=== PATIENT | female | born 1935 | race Caucasian/White ===

== ENCOUNTER → 2017-04-30 | Outpatient (CLI) | payer OTHER ==
[~2017-04-30] MED LIST: ACCUPRIL40 MG PO; CARDIZEM30 MG PO; LEVOTHYROXIN0.075 MG PO; ZOCOR20 MG PO
== END ==
LOC: RAD 04-29 14:03
DX: Z12.31 Encounter for screening mammogram for malignant neoplasm of breast (principal)

== ENCOUNTER → 2017-04-30 | Outpatient (CLI) | payer OTHER ==
[~2017-04-30] VITALS: Ht 170.2 cm; Wt 70.3 kg
[2017-04-30 13:46] VITALS: BP 173/71
== END ==
LOC: PAIN
DX: M25.561 Pain in right knee (principal); M25.551 Pain in right hip; K21.9 Gastro-esophageal reflux disease without esophagitis; M54.5 Low back pain; Z90.710 Acquired absence of both cervix and uterus; Z98.890 Other specified postprocedural states

== ENCOUNTER → 2017-05-21 | Outpatient (CLI) | payer OTHER ==
[~2017-05-21] VITALS: Ht 170.2 cm; Wt 71.9 kg
--- NOTE | ~2017-05-21 | HPC ---
[facility] [address] [place] [address] PAIN MANAGEMENT CONSULTATION Name: ANITA OSEGUERA [id number] Admission: 05/21/17 Attend Phys: He Hewitt DO Discharge: Date of : 37 Report #: [id number] THIS REPORT FOR: //name// CC: He Santoyo MD DATE OF SERVICE: 05/21/2017 CHIEF COMPLAINT: Right knee pain. HISTORY OF PRESENT ILLNESS: As you know, the patient is an 82-year-old female who had acute onset of low back pain, right lower extremity pain with paresthesias that began 02/16/2017. Denied any injury or trauma. She was seen in consultation 04/30/2017, diagnosed with chronic low back pain, lumbar radiculopathy, lumbar facet syndrome and right knee pain secondary to osteoarthritis. We treated the patient with treatment options available for low back symptoms and the most conservative fashion with the use of physical therapy. While she was at physical therapy, she was complaining of continued right knee pain. We extended the physical therapy to also include her right knee. Despite the physical therapy on the right knee, her knee remained painful, her low back has improved significantly. She returns today in followup visit to discuss treatment options. ALLERGIES: No known drug allergies. CURRENT MEDICATIONS: Synthroid, diltiazem, simvastatin. SOCIAL HISTORY: The patient denies tobacco, IV or illicit drug use. Denies any chronic alcohol use. She is unaccompanied at today's visit. PHYSICAL EXAMINATION: VITAL SIGNS: Blood pressure 143/81, pulse 72, respiratory rate 14, unlabored. The patient is 95% on room air, height 5 feet 7 inches tall, weight 158.6 pounds, BMI calculated 28.4. GENERAL: Well developed, well nourished, well hydrated 82-year-old female appearing her stated age. She is placing current pain score at around 5-6/10. HEENT: Normocephalic, atraumatic. Pupils equal, round, reactive to light. EXTREMITIES: Show no clubbing, no cyanosis, no edema. MUSCULOSKELETAL: The patient does have some pain standing from a seated position over the right knee, medial aspect more than the lateral. There is some palpatory tenderness over the lateral aspect of the right knee. There does not appear to be knee effusion, no swelling around the knee itself. ASSESSMENT: 1. Chronic low back pain. [address] [address] PAIN MANAGEMENT CONSULTATION Name: ANITA OSEGUERA [facility] #: [facility]ITAL[facility] [id number] Admission: 05/21/17 Attend Phys: He Hewitt DO Discharge: Date of : 37 Report #: [id number] 2. Chronic lumbar radiculopathy. 3. Facet arthropathy lower lumbar spine. 4. Right knee pain secondary to osteoarthritis. PLAN: 1. The patient returns today in followup visit with concerns of ongoing knee pain. I recommend the patient undergo x-ray imaging of the right knee as quickly as possible. We will review the findings as they are available. I believe the majority of the symptoms that she is experiencing are related to the medial aspect of the knee. We will send the patient for x-ray imaging; if imaging is such that there is significant amount of arthritis, I would recommend intraarticular knee injections; if these are ineffective, trial Synvisc injections; if these are ineffective, surgical options. She will review these potential treatment options once we have x-ray imaging available. She will be sent for x-ray imaging today. We will review the findings once they are available. 2. We made no changes in medical therapy. The patient wishes to continue her current treatment options and consider options of treatment for more aggressive therapy if necessary in the future. 3. We will see the patient back in followup visit on an as needed basis for possible intraarticular knee injections if needed. By: [id number] He Hewitt DO /nt
[2017-05-21 13:08] VITALS: BP 143/81
== END | disposition home or self-care (01) ==
LOC: PAIN 07:16
DX: M54.16 Radiculopathy, lumbar region (principal); M17.11 Unilateral primary osteoarthritis, right knee; G89.29 Other chronic pain; Z98.890 Other specified postprocedural states; Z88.0 Allergy status to penicillin; Z79.899 Other long term (current) drug therapy

== ENCOUNTER → 2019-04-20 | Outpatient (CLI) | payer OTHER | LOC: BC 14:39 | DX: Z12.31 Encounter for screening mammogram for malignant neoplasm of breast (principal) ==

== ENCOUNTER → 2019-04-21 | Outpatient (CLI) | payer OTHER | LOC: ULTRA 14:06 | DX: N64.59 Other signs and symptoms in breast (principal); R92.2 Inconclusive mammogram ==

== ENCOUNTER → 2019-12-10 | Outpatient (CLI) | payer OTHER | LOC: SJCVC 11:10 | DX: I10 Essential (primary) hypertension (principal); I70.0 Atherosclerosis of aorta; K86.2 Cyst of pancreas; C50.919 Malignant neoplasm of unspecified site of unspecified female breast; E78.5 Hyperlipidemia, unspecified; K21.9 Gastro-esophageal reflux disease without esophagitis; M19.90 Unspecified osteoarthritis, unspecified site; Z79.899 Other long term (current) drug therapy ==

== ENCOUNTER → 2020-06-15 | Outpatient (CLI) | payer OTHER | LOC: SJCVC 10:54 | PROVIDERS: ATTEND Internal Medicine | DX: I10 Essential (primary) hypertension (principal); C50.919 Malignant neoplasm of unspecified site of unspecified female breast; E78.5 Hyperlipidemia, unspecified; I65.23 Occlusion and stenosis of bilateral carotid arteries; I70.0 Atherosclerosis of aorta; K86.2 Cyst of pancreas; Z79.899 Other long term (current) drug therapy ==

== ENCOUNTER → 2020-06-23 | Outpatient (CLI) | payer OTHER | LOC: SJCVCIMAG 07:43 | PROVIDERS: ATTEND Internal Medicine | DX: I65.23 Occlusion and stenosis of bilateral carotid arteries (principal); I73.9 Peripheral vascular disease, unspecified ==

== ENCOUNTER → 2021-11-28 | Outpatient (CLI) | payer OTHER | LOC: RAD 14:13 | PROVIDERS: ATTEND Internal Medicine | DX: J98.11 Atelectasis (principal); J90 Pleural effusion, not elsewhere classified ==

== ENCOUNTER → 2021-11-30 | Outpatient (CLI) | payer OTHER | LOC: CAT 10:04 | PROVIDERS: ATTEND Internal Medicine | DX: J98.11 Atelectasis (principal); J90 Pleural effusion, not elsewhere classified; Z90.11 Acquired absence of right breast and nipple; R91.8 Other nonspecific abnormal finding of lung field; Z01.812 Encounter for preprocedural laboratory examination ==

== ENCOUNTER → 2021-12-08 | Outpatient (CLI) | payer OTHER ==
[2021-12-08 13:49] LABS: BF NUCLEATED CELLS 786 /mm3; BF RBC 983 /mm3
[2021-12-08 19:02] LABS: COLOR YELLOW; TOTAL VOLUME 58 mL
[2021-12-08 19:03] LABS: CLARITY CLOUDY
[2021-12-08 21:51] LABS: BF MACROPHAGE 8 %; BF NEUTROPHILS 0 %; SOURCE PLEURAL
[2021-12-09 08:17] LABS: SOURCE CHEST
[2021-12-09 13:07] LABS: BODY FLUID ALBUMIN 2.6 g/dL (Not Estab.); BODY FLUID AMYLASE 21 U/L (()); BODY FLUID GLUCOSE 83 mg/dL (()); BODY FLUID LDH 175 IU/L (()); BODY FLUID PROTEIN 3.8 g/dL (())
--- NOTE | 2021-12-12 12:07 | PATH ---
[facility] [address] [place] [address] PATHOLOGY RPT PROCEDURE Name: ANITA OSEGUERA Room #: REG [facility].#: [id number] Admission: 12/08/21 Date of : 37 Discharge: Report #: [id number] Path Case #: [id number] Note [facility] Accession Number: [id number] TESTS RESULT FLAG UNITS REF RANGE LAB Clinician Provided Cytology Information No. of containers..01 Other (Miscellaneous) Source: PLEURAL FLUID DIAGNOSIS: PLEURAL FLUID INCONCLUSIVE. COMMENT, POORLY CELLULAR WITH FEW ATYPICAL CELLS PRESENT. CELL BLOCK CONSIST OF MOSTLY BLOOD HENCE IMMUNOSTAINS WERE NOT PERFORMED. SUGGEST CLINICAL CORRELATION CANNOT RULE OUT MALIGNANCY Signed out by: 01 Frank Gil MD, Pathologist NPI- [id number] Performed by: Taylor Lock, Associate Director Of Nursing ([facility]) Gross description: 01 9ML, YELLOW, CLEAR /LCS 12/11/2021 1653 Local FLAG LEGEND: L-Low Normal,H-High Normal,LL-Alert Low,HH-Alert High <-Panic Low,>-Panic High,A-Abnormal,AA-Critical Abnormal Performed at: [address] [place] [address] Frank Gil MD, Specimen Comment: A courtesy copy of this report has been sent to [phone] Specimen Comment: Report sent to Performed at: [address], [place], [place] [id number] MD Frank Gil MD Phone: [phone]
== END | disposition home or self-care (01) ==
LOC: ULTRA 08:29
PROVIDERS: ATTEND Internal Medicine
DX: J90 Pleural effusion, not elsewhere classified (principal); R06.02 Shortness of breath; Z79.899 Other long term (current) drug therapy; Z98.890 Other specified postprocedural states; Z88.0 Allergy status to penicillin

== ENCOUNTER 2021-12-18 09:42 | Inpatient (IN) | payer OTHER ==
[~2021-12-18] VITALS: Ht 170.2 cm; Wt 72.3 kg
--- NOTE | ~2021-12-18 | EMS ---
[address] [address] EMS Patient Care Report Name: ANITA OSEGUERA Room #: 203-P ADM IN M.R.#: [id number] Admission: 12/18/21 Attend Phys: Soren Ricks MD Discharge: Date of : 37 Report #: [id number] THIS REPORT FOR: //name// Report Transmitted: 12/22/2021 11:30 EMS Care Summary [place], [place]/[facility] Incident [id number] @ 12/18/2021 09:04 Incident Location [address] [place] [address] Patient ANITA OSEGUERA Female, 86 Years 1935 Patient Address [address] [place] [address] Patient History Hypertension (HTN),Breast Cancer,Hypothyroidism, Patient Allergies No known allergies, Patient Medications Estradiol, Synthroid, Quinapril Hydrochloride, Diltiazem, Chief Complaint ABDOMINAL PAIN Disposition Transported No Lights/[place] Dispatch Reason Sick Person Transported To [facility] Narrative M36 was dispatched for sick. Arrived on-scene to find 86 yo female patient sitting in chair with P42. 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 Patient reported recently was at hospital for breathing issues and had fluid drained off lungs and is scheduled to go back this week but [address] [address] EMS Patient Care Report Name: ANITA OSEGUERA Room #: 203-P ADM IN [facility].#: [id number] Admission: 12/18/21 Attend Phys: Soren Ricks MD Discharge: Date of : 37 Report #: [id number] symptoms are progressing and feels necessary to be transported to [place] for eval. Patient was COA x4 and in moderate distress. Patient airway was patent. Patient breathing was labored at times with exertion. Patient pulse was normal. Patient skin was normal. Patient was able to stand and ambulate. Patient had generalized weakness. Patient complained of minor abdominal pain, malaise, weakness and shortness of breath with exertion. Patient rated pain 4/10. Patient denied headache, blurry vision, dizziness, syncope, jaw pain, neck pain, arm pain and chest pain. Patient report was obtained and assessment was performed. Patient was assisted to stretcher and secured with all safety straps. Patient was loaded into ambulance. Patient was placed on corn sheller and showed sinus tach. Patient vitals were assessed. Patient room air was 88%. Patient was placed on oxygen via nasal cannula @ 2lpm with improvement to 98% noted. Patient was transported routine. Patient did vomit during transport and appeared to have coffee ground emesis. Patient was unloaded and taken to ED 1. Patient was moved from stretcher to bed via draw sheet method by EMS. Patient signed for transport. Patient's RN signed for receiving facility. Patient care and report turned over to RN. M36 returned to service. Initial Vitals @09:33P: 101,R: 22,BP: 180/84,Pain: 4/10,GCS: 15,CO: 1,SpO2: 97,Revised Trauma: 12, @PTAP: 110,R: 20,BP: 180/90,Pain: 4/10,GCS: 15,Glucose: 179,SpO2: 94,Revised Trauma: 12, @09:23P: 106,R: 26,BP: 188/93,Pain: 4/10,GCS: 15,CO: 1,SpO2: 94,Revised Trauma: 12, Assessments @09:16MENTAL:Time Oriented,Event Oriented,Place Oriented,Person Oriented,SKIN:HEENT:Eyes: Left Pupil: 4-mm,Eyes: Right Pupil: 4-mm,Head/Face: No Abnormalities,Neck/Airway: No Abnormalities,LUNG SOUNDS:Left Upper: Tenderness,Left Lower: Tenderness,Right Upper: Tenderness,Right Lower: Tenderness,General: No Abnormalities,ABDOMEN:Left Upper: Tenderness,Left Lower: Tenderness,Right Upper: Tenderness,Right Lower: Tenderness,General: No Abnormalities,PELVIS//GI:No Abnormalities,EXTREMITIES:Right Arm: Weakness,Left Arm: Weakness,Right Leg: Weakness,Left Leg: Weakness,PULSE:Radial: 2+ Normal,NEURO:Weakness Right-Sided,Weakness Left-Sided, Impression Malaise Procedures [address] [address] EMS Patient Care Report Name: MANSINORBERTOANITA Room #: 203-P ADM IN M.R.#: [id number] Admission: 12/18/21 Attend Phys: Soren Ricks MD Discharge: Date of : 37 Report #: [id number] @09:16 ALS Assessment Response: UnchangedSucceeded @09:19 Stretcher Response: Unchanged @09:21 3-Lead ECG Response: UnchangedSucceeded @09:22 Oxygen FlowRate: 2 Device: Nasal Cannula (NC) Response: ImprovedSucceeded Timeline ENGINEERING DESIGNER,BP: 180/90 M,PULSE: 110,RR: 20 R,SPO2: 94 Ox,ETCO2: ,B,PAIN: 4,GCS: 15, 09:03,Call Received 09:03,Dispatch Notified 09:04,Dispatched 09:05,En Route 09:14,On Scene 09:16,At Patient 09:16,ALS Assessment,Response: UnchangedSucceeded, 09:19,Stretcher,Response: Unchanged 09:21,3-Lead ECG,Response: UnchangedSucceeded, 09:22,Oxygen FlowRate: 2 Device: Nasal Cannula (NC) Response: ImprovedSucceeded, 09:23,BP: 188/93 M,PULSE: 106,RR: 26 R,SPO2: 94 Ox,ETCO2: ,BG: ,PAIN: 4,GCS: 15, 09:26,Depart Scene 09:33,BP: 180/84 M,PULSE: 101,RR: 22 R,SPO2: 97 Ox,ETCO2: ,BG: ,PAIN: 4,GCS: 15, 09:36,At Destination 09:51,Call Closed Disclaimer v1.1 Copyright 2021 [employer] This EMS Care Summary contains data elements from the applicable legal record (which may be displayed differently). It is designed to provide pertinent information for the following purposes: continuity of care, clinical quality, and state data reporting. The complete legal record is available to ED staff and administrators of the receiving hospital in [email or web address]'s Patient Tracker. All data is provided "as is."
--- NOTE | ~2021-12-18 | EMS ---
[address] [address] EMS Patient Care Report Name: ANITA OSEGUERA Room #: 203-P ADM IN M.R.#: [id number] Admission: 12/18/21 Attend Phys: Soren Ricks MD Discharge: Date of : 37 Report #: [id number] THIS REPORT FOR: //name// Report Transmitted: 12/19/2021 10:17 EMS Care Summary [place], [place]/[facility] Incident [id number] @ 12/18/2021 09:04 Incident Location [address] [place] [address] Patient ANITA OSEGUERA Female, 86 Years 1935 Patient Address [address] [place] [address] Patient History Hypertension (HTN),Breast Cancer,Hypothyroidism, Patient Allergies No known allergies, Patient Medications Diltiazem, Estradiol, Synthroid, Quinapril Hydrochloride, Chief Complaint ABDOMINAL PAIN Disposition Transported No Lights/[place] Dispatch Reason Sick Person Transported To [facility] Narrative M36 was dispatched for sick. Arrived on-scene to find 86 yo female patient sitting in chair with P42. 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 Patient reported recently was at hospital for breathing issues and had fluid drained off lungs and is scheduled to go back this week but [address] [address] EMS Patient Care Report Name: ANITA OSEGUERA Room #: 203-P ADM IN [facility].#: [id number] Admission: 12/18/21 Attend Phys: Soren Ricks MD Discharge: Date of : 37 Report #: [id number] symptoms are progressing and feels necessary to be transported to [place] for eval. Patient was COA x4 and in moderate distress. Patient airway was patent. Patient breathing was labored at times with exertion. Patient pulse was normal. Patient skin was normal. Patient was able to stand and ambulate. Patient had generalized weakness. Patient complained of minor abdominal pain, malaise, weakness and shortness of breath with exertion. Patient rated pain 4/10. Patient denied headache, blurry vision, dizziness, syncope, jaw pain, neck pain, arm pain and chest pain. Patient report was obtained and assessment was performed. Patient was assisted to stretcher and secured with all safety straps. Patient was loaded into ambulance. Patient was placed on engine monitor and showed sinus tach. Patient vitals were assessed. Patient room air was 88%. Patient was placed on oxygen via nasal cannula @ 2lpm with improvement to 98% noted. Patient was transported routine. Patient did vomit during transport and appeared to have coffee ground emesis. Patient was unloaded and taken to ED 1. Patient was moved from stretcher to bed via draw sheet method by EMS. Patient signed for transport. Patient's RN signed for receiving facility. Patient care and report turned over to RN. M36 returned to service. Initial Vitals @09:33P: 101,R: 22,BP: 180/84,Pain: 4/10,GCS: 15,CO: 1,SpO2: 97,Revised Trauma: 12, @PTAP: 110,R: 20,BP: 180/90,Pain: 4/10,GCS: 15,Glucose: 179,SpO2: 94,Revised Trauma: 12, @09:23P: 106,R: 26,BP: 188/93,Pain: 4/10,GCS: 15,CO: 1,SpO2: 94,Revised Trauma: 12, Assessments @09:16MENTAL:Person Oriented,Place Oriented,Event Oriented,Time Oriented,SKIN:HEENT:Eyes: Right Pupil: 4-mm,Eyes: Left Pupil: 4-mm,Head/Face: No Abnormalities,Neck/Airway: No Abnormalities,LUNG SOUNDS:Right Lower: Tenderness,Right Upper: Tenderness,Left Lower: Tenderness,Left Upper: Tenderness,General: No Abnormalities,ABDOMEN:Right Lower: Tenderness,Right Upper: Tenderness,Left Lower: Tenderness,Left Upper: Tenderness,General: No Abnormalities,PELVIS//GI:No Abnormalities,EXTREMITIES:Left Leg: Weakness,Right Leg: Weakness,Left Arm: Weakness,Right Arm: Weakness,PULSE:Radial: 2+ Normal,NEURO:Weakness Left-Sided,Weakness Right-Sided, Impression Malaise Procedures [address] [address] EMS Patient Care Report Name: JARET OSEGUERAJIAN Centeno Room #: 203-P ADM IN M.R.#: [id number] Admission: 12/18/21 Attend Phys: Soren Ricks MD Discharge: Date of : 37 Report #: [id number] @09:16 ALS Assessment Response: UnchangedSucceeded @09:19 Stretcher Response: Unchanged @09:21 3-Lead ECG Response: UnchangedSucceeded @09:22 Oxygen FlowRate: 2 Device: Nasal Cannula (NC) Response: ImprovedSucceeded Timeline SIGNALS OFFICER,BP: 180/90 M,PULSE: 110,RR: 20 R,SPO2: 94 Ox,ETCO2: ,B,PAIN: 4,GCS: 15, 09:03,Call Received 09:03,Dispatch Notified 09:04,Dispatched 09:05,En Route 09:14,On Scene 09:16,At Patient 09:16,ALS Assessment,Response: UnchangedSucceeded, 09:19,Stretcher,Response: Unchanged 09:21,3-Lead ECG,Response: UnchangedSucceeded, 09:22,Oxygen FlowRate: 2 Device: Nasal Cannula (NC) Response: ImprovedSucceeded, 09:23,BP: 188/93 M,PULSE: 106,RR: 26 R,SPO2: 94 Ox,ETCO2: ,BG: ,PAIN: 4,GCS: 15, 09:26,Depart Scene 09:33,BP: 180/84 M,PULSE: 101,RR: 22 R,SPO2: 97 Ox,ETCO2: ,BG: ,PAIN: 4,GCS: 15, 09:36,At Destination 09:51,Call Closed Disclaimer v1.1 Copyright 2021 [email or web address] This EMS Care Summary contains data elements from the applicable legal record (which may be displayed differently). It is designed to provide pertinent information for the following purposes: continuity of care, clinical quality, and state data reporting. The complete legal record is available to ED staff and administrators of the receiving hospital in [employer]'s Patient Tracker. All data is provided "as is."
[2021-12-18 09:42] VITALS: BP 180/85
[2021-12-18 10:25] LABS: ABSOLUTE NEUTROPHILS 3.6 thou/uL (1.4-8.2); BASOPHILS 0.5 % (0.0-2.0); EOSINOPHILS 0.1 % (0.0-3.0); HEMATOCRIT 30.6 % (37.0-47.0); HEMOGLOBIN 10.5 gm/dL (12.0-15.0); LYMPHOCYTES 13.6 % (24.0-44.0); MCH 37.5 pg (26.0-34.0); MCHC 34.2 g/dL (28.0-37.0); MCV 109.5 fL (80.0-100.0); MONOCYTES 1.5 % (1.0-8.0); PLATELET COUNT 400 thou/uL (150-400); POLYS 84.3 % (36.0-66.0); RDW 16.9 % (10.5-14.5); WBC 4.3 thou/uL (4.0-11.0)
[2021-12-18 10:46] LABS: CALCIUM 9.2 mg/dL (8.5-10.1); POTASSIUM 4.5 mmol/L (3.5-5.1)
[2021-12-18 10:51] LABS: ALBUMIN 3.4 g/dL (3.4-5.0); TOTAL BILIRUBIN 0.5 mg/dL (0.2-1.0); TOTAL PROTEIN 6.8 g/dL (6.4-8.2)
[2021-12-18 13:04] LABS: URINE BILIRUBIN NEGATIVE (Negative); URINE BLOOD NEGATIVE (Negative); URINE CLARITY CLEAR; URINE COLOR YELLOW; URINE GLUCOSE-RANDOM* NEGATIVE (Negative); URINE KETONES 1+ (Negative); URINE LEUKOCYTES-REFLEX NEGATIVE (Negative); URINE NITRITE-REFLEX NEGATIVE (Negative); URINE PROTEIN (DIPSTICK) NEGATIVE (Negative); URINE UROBILINOGEN 0.2 E.U./dl (0.2-1.0)
[2021-12-18 13:08] LABS: ANISOCYTOSIS 1+; MACROCYTES 2+; PLATELET ESTIMATE NORMAL
[2021-12-18] MEDS ORDERED: IBRANCE100 MG PO (16:31)
[2021-12-18] MEDS ORDERED: ARIMIDEX1 MG PO (16:32)
[2021-12-18] MEDS ORDERED: ELDERBERRY PO (16:32)
[2021-12-18] MEDS ORDERED: GALZIN50 MG PO (16:32)
[2021-12-18] MEDS ORDERED: PROAIR DIGIHAL90 MCG INH (16:32)
[2021-12-18] MEDS ORDERED: FAMOTIDINE 20 M20 MG PO (16:33)
[2021-12-18] MEDS ORDERED: BIOTIN1 MG PO (16:33)
[2021-12-18] MEDS ORDERED: POTASSIUM CHLO20 MEQ PO (16:34)
[2021-12-18] MEDS ORDERED: ONDANSETRON HCL4 M2 PO (16:34)
[2021-12-18] MEDS ORDERED: CALCIUM CARBON500 MG PO (16:35)
[2021-12-18] MEDS ORDERED: VITAMIN D310 MC2 PO (16:35)
[2021-12-18] MEDS ORDERED: GORDO-VITE A2400 GM PO (16:35)
[2021-12-18] MEDS ORDERED: VITAMIN B COMP1 EACH PO (16:35)
[2021-12-18] MEDS ORDERED: PANTOTHENIC ACID PO (16:36)
[2021-12-18] MEDS ORDERED: DILTIAZEM HCL30 MG PO ×2 (16:38)
[2021-12-18] MEDS ORDERED: VITAMIN E1000 UNIT PO (16:39)
[2021-12-18 19:42] VITALS: BP 135/69
[2021-12-18 20:15] VITALS: BP 100/75
[2021-12-19] VITALS (7 sets, daily range): BP systolic 100–139; BP diastolic 47–75
[2021-12-19 04:16] LABS: HEMATOCRIT 26.1 % (37.0-47.0); HEMOGLOBIN 8.9 gm/dL (12.0-15.0); MCH 37.9 pg (26.0-34.0); MCHC 34.2 g/dL (28.0-37.0); MCV 110.7 fL (80.0-100.0); RBC 2.36 mil/uL (4.20-5.00); RDW 17.2 % (10.5-14.5); WBC 2.6 thou/uL (4.0-11.0)
--- NOTE | 2021-12-19 04:57 | NUR ---
pt admitted around 1999 for SBO and pleural effusions, pt is awake, alert and orirnted, denies pain, sr/st on tele,NTG to LIS, admission assessment, hx and education completed, 500 ml output from the ngt, fluids infusing as per mar, adequate urine output, up to the b/s commode with one assist d/t ngt. vss, no acute distress noted, will cont to monitor pt per poc
--- NOTE | 2021-12-19 07:38 | EKG ---
[address] [address] ELECTROCARDIOGRAM REPORT Name: ANITA OSEGUERA Room #: 203-P [facility] IN .R.#: [id number] Admission: 12/18/21 Attend Phys: Soren Ricks MD Discharge: Date of : 37 Report #: [id number] [facility] ED Test Date: 2021-12-18 Test Time: 09:58:27 Pat Name: ANITA OSEGUERA Department: Room: 203 Gender: F Tombstone Erector: Krishan GREENFIELD : 1935 Requested By: Soren Ricks Order Number: [id number] MD: Sander Dixon Measurements Intervals [place] Rate: 101 P: 28 SD: 153 QRS: 6 QRSD: 107 T: 58 QT: 352 QTc: 457 Interpretive Statements Sinus tachycardia Probable left atrial enlargement No previous ECG available for comparison Electronically Signed On 12-19-2021 7:38:25 CUSTODIAL LABORER by Sander Dixon [email or web address] <ELECTRONICALLY SIGNED> By: Sander Dixon MD, [facility] 12/19/21 0738 [id number] Sander Dixon MD, FACC /EPI
[2021-12-19 08:44] LABS: ALBUMIN 2.9 g/dL (3.4-5.0); CALCIUM 7.9 mg/dL (8.5-10.1); CREATININE 1.3 mg/dL (0.6-1.0); PHOSPHORUS 5.1 mg/dL (2.6-4.7); POTASSIUM 4.7 mmol/L (3.5-5.1)
--- NOTE | 2021-12-19 09:53 | NUR ---
PATIENT ADMITTED FOR SBO, PLEURAL EFFUSIONS. CHART REVIEWED AND DISCUSSED WITH CARE TEAM. CM MET WITH PT THIS DAY. PT REPORTS SHE LIVES AT HOME ALONE. SHE REPORTS LOSINIG HER 7 YEARS AGO AND HAS FAMILY AND NEIGHBORS FOR SUPPORT. PT REPORTS SHE IS INDEP WITH ADLS AND MOBILITY. SHE UTILIZES A CANE IN THE COMMUNITY. PT REPORTS SHE DOES HER OWN BATHING, TOILETING, DRESSING, AND STILL DRIVES. PT REPORTS SHE HAS [address] STAIRS OUTSIDE THE HOME ALTHOUGH DOES NOT USE THEM. SHE GOES OUTSIDE THROUGH THE GARAGE. PT REPORTS 14 STAIRS INSIDE THE HOME IS WHICH SHE UTILIZES TO DO LAUNDRY. PT REPORTS HER PCP IS DR MERA ANN. PRIMARY CONTACT IS MORGAN WHO IS PTS DPOA KEN ALEJANDRO [phone]. PT ALSO HAS CONTACT HER HUSBANDS NEPHEWS YENNIFER GALLO AT [phone] OR [phone]. PT REPORTS SHE WISHES TO RETURN HOME ONCE MEDICALLY STABLE TO DC. PT DOES NOT HAVE PT/OT ORDERS. WILL ARRANGE WITH PHYSICIAN AND FOLLOW THERAPY RECOMMENDATIONS FOR DC. CM FOLLOWING FOR DC PLANNING.
--- NOTE | 2021-12-19 20:53 | NUR ---
PT IS AXOX4, COOPERATIVE. VSS, AFEBRILE, SR ON THE MONITOR. PT IS NPO, WITH NG TUBE AT 65, SET TO LIS. PT HAD XRAY FOR STATUS OF SBO. CONTRAST GIVEN. PT NG TUBE REPLACED STOP COCK TO ENSURE SUCTION. PT HAS HAD 3 LARGE BOWEL MOVEMENTS, LOOSE AND LIGHT/YELLOW BROWN. DR BENAVIDES CONSULTED, DR SHARMA CONSULTED. PT STILL NPO WHILE ON LIS. WILL CONTINUE TO ASSESS CONTENTS OF SUCTION. PT NIECE AT THE BEDSIDE FOR PART OF DAY. FALL PRECAUTIONS IN PLACE. NO CONCERNS AT THIS TIME.
--- NOTE | 2021-12-20 04:30 | NUR ---
assumed pt care at 1900, alert and orientedx4, sr on tele, vital signs stable, ng tube discontinued at 2014, clear liquid diet, had a large bowel movement, no nausea this shift, abdomen soft, bowel sounds active, denies any distress, will cont to monitor per poc
[2021-12-20 05:44] VITALS: BP 139/61
[2021-12-20 07:57] VITALS: BP 147/62
[2021-12-20 14:41] LABS: ALBUMIN 2.9 g/dL (3.4-5.0); CALCIUM 6.9 mg/dL (8.5-10.1); CREATININE 0.7 mg/dL (0.6-1.0); PHOSPHORUS 2.3 mg/dL (2.6-4.7); POTASSIUM 3.8 mmol/L (3.5-5.1)
[2021-12-20 15:22] VITALS: BP 125/51
--- NOTE | 2021-12-20 16:02 | NUR ---
CHART REVIEWED AND DISCUSSED WITH CARE TEAM. CM MET WITH PT THIS DAY. THERAPY RECOMMENDING PT DC HOME WITH HOME HEALTH ONCE MEDICALLY STABLE TO DC. CM REVIEWED CHOICES WITH PT. PT REPORTS SHE DID NOT HAVE A PREFERENCE FOR HH. CM SENT [facility]ERRALS TO [facility] ACCEPTED AND WILL PROVIDE HH SERVICES ON PTS DISCHARGES TO HOME. PT MOST LIKELY TO DC TOMORROW. HOWEVER WITH INCLEMENT WEATHER IT MAY BE SATURDAY. CM WILL SENT CLINICAL UPDATES TO [facility] INDICATED. CM FOLLOWING FOR PLANNING.
--- NOTE | 2021-12-20 18:31 | NUR ---
ASSUMED PATIENT CARE AT 0700. A/O X4. NO N/V. TOLERATED ON FILL LIQID DIET. ON 1L/NC. NO SOB NOTED. SLOWLY TOWARDS POC GOALS.
[2021-12-20 20:11] VITALS: BP 114/59
--- NOTE | 2021-12-21 03:17 | NUR ---
RESTED QUIETLY MOST OF SHIFT. ASSISTED UP TO COMODE NEEDED. PATIENT STATES SHE IS NOT STRONG ENOUGH TO GO HOME YET. ENCOURAGED TO GET UP DURING DAY TO CHAIR. WORKING ON GOALS AND PLAN OF CARE FOR NOC. CONTINUE TO ASSES CLOSELY.
[2021-12-21 03:18] VITALS: BP 139/54
[2021-12-21 07:00] VITALS: BP 144/69
--- NOTE | 2021-12-21 12:51 | NUR ---
REFERRAL RECEIVED FOR REHAB EVALUATION. PATIENT INFORMATION REVIEWED BY DR. DA SILVA AND SNF WAS RECOMMENDED FOR D/C PLAN. D/C SITE DAMAGE PREVENTION TECHNICIAN INFORMED. THANK YOU FOR THIS REFERRAL.
[2021-12-21 16:00] VITALS: BP 138/66
--- NOTE | 2021-12-21 18:39 | NUR ---
PT IS AXOX4, PLEASANT BUT SOME ANXIOUSNESS. VSS, AFEBRILE, SR ON THE MONITOR. PT HAS DENIED PAIN BUT VOICES CONCERNS REGARDING HER CARE WITH HER LUNGS. [facility] NURSE CALLED ICO DR TAVAREZ, WHO WOULD LIKE DR MODI CONSULTED. DR SHARMA AGREES. DR KENNEDY CONSULTED FOR PLEURAL EFFUSIONS. POC IS TO CONTINUE TO ASSESS ABDOMINAL DISCOMFORT, BREATHING. RT TREATMENTS. FALL PRECAUTIONS IN PLACE. NO CONCERNS AT THIS TIME.
[2021-12-21 20:45] VITALS: BP 158/77
[2021-12-22 02:47] VITALS: BP 150/65
[2021-12-22 05:17] LABS: HEMATOCRIT 24.5 % (37.0-47.0); HEMOGLOBIN 8.4 gm/dL (12.0-15.0); MCH 38.2 pg (26.0-34.0); MCHC 34.3 g/dL (28.0-37.0); MCV 111.5 fL (80.0-100.0); RBC 2.2 mil/uL (4.20-5.00); RDW 17.2 % (10.5-14.5)
[2021-12-22 05:19] LABS: APTT 28.4 Seconds (24.5-32.8); PROTIME 10.9 Seconds (10.5-12.1)
[2021-12-22 05:33] LABS: WBC 1.6 thou/uL (4.0-11.0)
[2021-12-22 05:54] LABS: CALCIUM 7.7 mg/dL (8.5-10.1); CREATININE 0.7 mg/dL (0.6-1.0); POTASSIUM 4.1 mmol/L (3.5-5.1)
[2021-12-22 07:30] VITALS: BP 149/63
--- NOTE | 2021-12-22 08:17 | NUR ---
ASSUME CARE 1900. PT/VITALS STBLE. DENIES ANY PAIN. GOOD ENDURANCE TO ACTIVITY. SOB NOTED WITH EXERTION. ASSESSMENT CHARTED. PROGRESSING MODERATELY TOWARDS POC. NO DISTRESS NOTED THROUGH THE NIGHT. SR ON MONITOR. PLAN IS POSSIBLE THORACENTESIS TODAY. WILL CONTINUE TO MONITOR AND FOLLOW WITH POC
[2021-12-22 11:20] VITALS: BP 136/65
[2021-12-22 15:43] VITALS: BP 146/65
--- NOTE | 2021-12-22 16:46 | NUR ---
CHART REVIEWED AND DISCUSSED WITH CARE TEAM. PLAN IF FOR PT TO DC WITH HH OR SNF. CM ATTEMPT TO MEET WITH PT THIS DAY. PT WALKING IN [place] WITH THERAPY. CM MET PT ANOTHER POINT IN THE DAY AND PT OFF FLOOR. PHYSICIAN NOTES INDICATE PT WILL HAVE MRI/PET SCAN NEXT WEEK TO ASSESS DISEASE STATUS. CM DID NOT MEET WITH PT REGARDING SNF CHOICE. CM DID MEET WITH PT REGARDING HH. [facility] PT SHOULD PT DC WITH [facility]. FAX DC ORDERS AND SUMMARY TO TO [facility] [phone] CM FOLLOWING FOR DC PLANNING.
[2021-12-22 19:24] VITALS: BP 152/62
--- NOTE | 2021-12-22 19:41 | NUR ---
PT IS AXOX4, SOME ANXIOUSNESS. VSS, AFEBRILE, SR ON THE MONITOR. PT IS CURRENTLY ON 2LNC. C/O FEELING "HARD TO BREATHE SOMETIMES." PT WENT FOR LEFT THORACENTESIS. CONSENT OBTAINED THIS MORNING FOR L THORACENTESIS. PT TAKEN DOWN TO US AND A RIGHT THORACENTESIS WAS CONDUCTED DUE TO FLUID AMOUNT. DR MODI CONSULTED, DR KENNEDY CONSULTED, DR SHARMA CONSULTED. POC IS TO CONTINUE TO MONITOR PT LUNGS, O2; PT CONTINUES TO C/O ABDOMINAL DISCOMFORT FROM FOOD. CONTINUE TO MONITOR BP. FALL PRECAUTIONS IN PLACE. NO CONCERNS AT THIS TIME.
[2021-12-23 03:34] LABS: HEMATOCRIT 25.1 % (37.0-47.0); HEMOGLOBIN 8.5 gm/dL (12.0-15.0); MCH 37.7 pg (26.0-34.0); MCHC 33.9 g/dL (28.0-37.0); MCV 111.2 fL (80.0-100.0); RBC 2.25 mil/uL (4.20-5.00); WBC 2.2 thou/uL (4.0-11.0)
[2021-12-23 03:45] VITALS: BP 138/63
[2021-12-23 03:52] LABS: CALCIUM 8.5 mg/dL (8.5-10.1); CREATININE 0.7 mg/dL (0.6-1.0); POTASSIUM 4.3 mmol/L (3.5-5.1)
--- NOTE | 2021-12-23 04:44 | NUR ---
RECEIVED PATIENT AROUND 12 MIDNIGHT.PATIENT IS ALERT AND ORIENTED X4.ON NASAL CANNULA AT 2LPM.NO COMPLAINTS OF PAIN.NOT IN DISTRESS.ALL NEEDS ATTENDED.TO CONTINOUSLY MONITOR.
[2021-12-23 08:10] VITALS: BP 160/67
[2021-12-23 11:15] VITALS: BP 136/68
[2021-12-23 15:24] VITALS: BP 141/64
--- NOTE | 2021-12-23 16:58 | NUR ---
Assumed care of pt at 0700 this morning. Vital signs stable, lung sounds slightly diminished on 2L nasal cannula. Pt able to maintain oxygen saturation above 95% on room air, so nasal cannula removed. Some nasal discomfort reported by patient, likely from oxygen drying nose. Creede saline gel ordered and applied. Normal heart tones, mild edema noted in lower extremeties. Feet elevated while patient is in bed. Active bowel sounds, no nausea or abdominal pain noted. Patient neurologically intact, able to ambulate to bedside commode with minimal to no assist. No concerns at this time.
[2021-12-23 19:25] VITALS: BP 162/64
[2021-12-24 00:20] VITALS: BP 143/62
[2021-12-24 03:42] VITALS: BP 139/60
--- NOTE | 2021-12-24 04:12 | NUR ---
RECEIVED PATIENT AT 1900H.PATIENT IS ALERT AND ORIENTED X4.ON ROOM AIR BREATHING SPONTANEOUSLY.NO COMPLAINTS OF PAIN.NOT IN DISTRESS.MEDS GIVEN PER JAN.ALL NEEDS ATTENDED.TO CONTINOUSLY MONITOR.
[2021-12-24 04:54] LABS: HEMATOCRIT 22.8 % (37.0-47.0); HEMOGLOBIN 7.8 gm/dL (12.0-15.0); MCH 37.9 pg (26.0-34.0); MCHC 34.2 g/dL (28.0-37.0); MCV 110.9 fL (80.0-100.0); PLATELET COUNT 264 thou/uL (150-400); RBC 2.06 mil/uL (4.20-5.00); WBC 2.4 thou/uL (4.0-11.0)
[2021-12-24 05:09] LABS: ALBUMIN 2.4 g/dL (3.4-5.0); ANION GAP 5 mmol/L (7-16); BUN 8 mg/dL (7-18); CHLORIDE 98 mmol/L (98-107); CO2 27 mmol/L (21-32); CREATININE 0.6 mg/dL (0.6-1.0); DIRECT BILIRUBIN < 0.1 mg/dL (<0.1-0.2); GLUCOSE 92 mg/dL (74-106); MAGNESIUM 1.9 mg/dL (1.8-2.4); PHOSPHORUS 3.6 mg/dL (2.6-4.7); POTASSIUM 4.2 mmol/L (3.5-5.1); SGOT 28 U/L (15-37); SGPT 15 U/L (14-59); SODIUM 130 mmol/L (136-145); TOTAL BILIRUBIN 0.2 mg/dL (0.2-1.0); TOTAL PROTEIN 5.2 g/dL (6.4-8.2)
[2021-12-24 05:36] LABS: ABSOLUTE NEUTROPHILS 1.3 thou/uL (1.4-8.2); ANISOCYTOSIS 1+; ATYPICAL LYMPHS 1 %; MACROCYTES 3+; METAMYELOCYTES 1 %; POLYCHROMASIA 1+; SCHISTOCYTES FEW
[2021-12-24 08:18] VITALS: BP 140/66
[2021-12-24 15:36] VITALS: BP 149/69
--- NOTE | 2021-12-24 16:28 | NUR ---
ASSUMED PT CARE THIS MORNING. PT A&OX4 AND COMMUNICATING NEEDS TO STAFF APPROPRIATELY. PT STATES THEY HAVE PAIN IN THEIR BACK AND NECK. ORDER FOR TYLENOL OBTAINED AND PAIN WELL MANAGED. PT AMBULATES TO THE BATHROOM WITH ONE STAFF MEMBER ASSISTING AND VOIDS WITHOUT ISSUE. PT HAD A BM THIS MORNING AFTER DRINKING SOME WARM PRUNE JUICE WITH BUTTER. PT HAD A GOOD APPETITE, DENIES NAUSEA/VOMITING/UPSET STOMACH. PT IS ABLE TO REPOSITION THEMSELVES FREQUENTLY WITH MINIMAL STAFF ASSISTANCE.
[2021-12-24 20:00] VITALS: BP 162/75
[2021-12-25] VITALS: BP 140/64
[2021-12-25 02:53] LABS: CALCIUM 7.7 mg/dL (8.5-10.1); CREATININE 0.7 mg/dL (0.6-1.0); POTASSIUM 4.3 mmol/L (3.5-5.1)
[2021-12-25 04:00] VITALS: BP 160/65
--- NOTE | 2021-12-25 04:51 | NUR ---
assumed pt care at 1900, alert and oriented, sr on tele, asessments as charted, tyl givenx1 for neck pain, adequate urine output, gets up with stby assist to the bathroom, no distress noted, held lovenox for thoracenthesis today, will continue to monitor
[2021-12-25 07:30] VITALS: BP 140/64
[2021-12-25 11:00] VITALS: BP 148/74
--- NOTE | 2021-12-25 11:23 | 2DMMODE ---
[facility] [place] [address] 2 D/M-MODE ECHOCARDIOGRAM Name: ANITA OSEGUERA Room #: 203-P ADM IN M.R.#: [id number] Admission: 12/18/21 Attend Phys: Soren Ricks MD Discharge: Date of : 39 Report #: [id number] THIS REPORT FOR: cc: Segun Santoyo MD, Steven E. MD Lundgren, Craig H. MD [facility] ~ APPROVED REPORT Study performed: 12/25/2021 09:33:20 EXAM: Comprehensive 2D, Doppler, and color-flow Echocardiogram Patient Location: Bedside Room #: 203 Status: routine BSA: 1.88 HR: 76 bpm BP: 140/64 mmHg Rhythm: NSR Other Information Study Quality: Good Indications Congestive Heart Failure 2D Dimensions IVC: 20.00 mm Volumes Left Atrial Volume (Systole) Single Plane 4CH: 45.94 mL Single Plane 2CH: 42.24 mL LA ESV Index: 27.00 mL/m2 Aortic Valve AoV Peak Ryan.: 1.45 m/s AO Peak Gr.: 8.37 mmHg LVOT Max P.81 mmHg LVOT Max V: 0.98 m/s Mitral Valve E/A Ratio: 0.7 MV Decel. Time: 286.90 ms MV E Max Ryan.: 0.71 m/s MV A Ryan.: 1.06 m/s MV PHT: 83.20 ms [facility] [address] [place] [address] 2 D/M-MODE ECHOCARDIOGRAM Name: ANITA OSEGUERA Room #: 203-P [facility] IN M.R.#: [id number] Admission: 12/18/21 Attend Phys: Soren Ricks MD Discharge: Date of : 39 Report #: [id number] IVRT: 170.70 ms Pulmonary Valve PV Peak Ryan.: 0.81 m/s PV Peak Gr.: 2.63 mmHg Pulmonary Vein P Vein S: 0.61 m/s P Vein A: 0.32 m/s P Vein D: 0.39 m/s P Vein A Dur.: 115.3 msec P Vein S/D Ratio: 1.56 Left Ventricle The left ventricle is normal size. There is normal LV segmental wall motion. There is normal left ventricular wall thickness. Left ventricular systolic function is normal. The left ventricular ejection fraction is within the normal range. LVEF 60%. Mild diastolic dysfunction Right Ventricle The right ventricle is normal size. The right ventricular systolic function is normal. Atria The left atrium size is normal. The right atrium size is normal. Aortic Valve The aortic valve is mildly sclerotic. Mild aortic regurgitation. No aortic valvular stenosis. Mitral Valve The mitral valve is normal in structure. There is no mitral valve regurgitation noted. No evidence of mitral valve stenosis. Tricuspid Valve The tricuspid valve is normal in structure. There is no tricuspid valve regurgitation noted. Pulmonic Valve The pulmonary valve is normal in structure. There is no pulmonic valvular regurgitation. Great Vessels The aortic root is normal in size. IVC is normal in size and collapses >50% with inspiration. Pericardium [facility] [address] [email or web address] [address] 2 D/M-MODE ECHOCARDIOGRAM Name: ANITA OSEGUERA Room #: 203-P ADM IN .R.#: [id number] Admission: 12/18/21 Attend Phys: Soren Ricks MD Discharge: Date of : 39 Report #: [id number] There is no pericardial effusion. Large pleural effusion. <Conclusion> Left ventricular systolic function is normal. There is normal LV segmental wall motion. LVEF 60%. Mild diastolic dysfunction The aortic valve is mildly sclerotic. Mild aortic regurgitation, no stenosis. The mitral valve is normal in structure. No mitral valve regurgitation Pulmonary artery pressure could not be reliably ascertained. There is no pericardial effusion. <ELECTRONICALLY SIGNED> By: Justin Cintron MD, FACC 12/25/213 22 22 Justin Cintron MD, FACC /INF
[2021-12-25 15:50] VITALS: BP 155/84
--- NOTE | 2021-12-25 16:47 | NUR ---
CHART REVIEWED AND DISCUSSED WITH CARE TEAM. CM SPOKE WITH KOKI LEBRON. SHE INFORMED CM THEY CAN ACCEPT PT ONCE MEDICALLY STABLE TO DC. CM TO FOLLOW UP WITH PIA ON PTS DC PLAN FOR BREAST METS AND ONCOLOGY FOLLOW UP. INFORMED LIASON PT WILL BE MEDICALLY STABLE TO DC IN THE NEXT DAY OR TWO. CM FOLLOWING FOR DC PLANNING.
[2021-12-25 19:21] VITALS: BP 151/79
--- NOTE | 2021-12-25 19:39 | NUR ---
PT IS AXOX4, SOME ANXIETY, COOPERATIVE. VSS, AFEBRILE, SR ON THE MONITOR. PT WENT TO THORACENTESIS THIS AM, L LUNG PLEURAL EFFUSION. SITE C/D/I, BANDAGE COVERING THE SITE. PT/OT CONSULTED. DR MODI CONSULTED. DR BUSTOS CONSULTED. POC IS TO CONTINUE TO ASSESS BREATHING, O2 SAT, PAIN MGMT. WILL CONTINUE TO ASSESS POSS 5N REHAB D/C. FALL PRECAUTIONS IN PLACE. NO CONCERNS AT THIS TIME.
--- NOTE | 2021-12-26 03:15 | NUR ---
RECEIVED CARE OF THIS PATIENT AT 1900. PATIENT ALERT AND ORIENTED X4. UP TO BR AND BSC WITH SBA ONLY. DRESSING ON R BACK D/I. C/O PAIN, MED GIVEN.SLEPT MOST OF NIGHT.
[2021-12-26 04:00] VITALS: BP 131/61
[2021-12-26 07:25] VITALS: BP 163/68
[2021-12-26 15:00] VITALS: BP 137/58
--- NOTE | 2021-12-26 16:09 | NUR ---
CHART REVIEWED AND DISCUSSED WITH CARE TEAM. CM MET WITH PT THIS DAY. CM INFORMED PT HAS BEEN ACCEPTED TO [facility] AND ANTICIPATE PT TRANSFERRING THIS DAY. AT THAT TIME PULMONARY SAW PT AND INDICATED PT WOULD NEED AN US OF LEG TO RULE OUT PE. THAT WAS NEGATIVE HOWEVER NURSING INDICATED IT LOOKED LIKE RIGHT LUNG WAS BEGINNING TO FILL UP AGAIN. PT WILL NOT DC THIS DAY. WILL DETERMINE IT PT WILL FOLLOW UP OUTPT TO PUT IN DRAIN OR DO WHILE INPT. CM CALLED TO SPEAK TO PTS CAMMY WOOD PTS MORGAN AT [phone]. WE DISCUSSED PT PLAN FOR ONCOLOGY APPTS AND CHEMO ONCE MEDICALLY STABLE TO DC. BOWEN INFORMED CM PT HAD APPT WITH ONCOLOGIST DR CORTES WITH [facility] IN JANUARY 02. HOWEVER, TO PREPARE FOR THAT APPT PT NEEDED TO HAVE MRI, MAMMOGRAM, AND PET SCAN PRIOR TO APPT. PT HAS NOT HAD THOSE TEST DONE RELATED TO BEING HOSPITALIZED. THEREFORE, WILL RESCHEDULE APPTS. DISCUSSED PLAN FOR PT TO DC TO SNF AND ONCE DC'D F/U WITH ONCOLOGY. PT INFORMED CM SHE WOULD NEED CLOTHES TO TRANSFER TO [facility]. CM WILL CALL RADHA TO ARRANGE WITH PT AND BRING CLOTHES. CM CALLED TO SPEAK WITH RADHA. ZIASUSY INDICATED SHE AND HER SPOUSE WOULD COME TO VISIT PT THIS EVEING AND TALK TO HER ABOUT GETTING CLOTHES FOR HER TO TAKE TO REHAB ONCE SHE IS MEDICALLY STABLE TO DC. CM INFORMED NURSING OF PLAN. CM FOLLOWING FOR DC PLANNING. NO FURTHER CM INTERVENTIONS AT THIS TIME.
[2021-12-26 19:57] VITALS: BP 158/68
[2021-12-27 03:41] VITALS: BP 139/67
[2021-12-27 07:15] VITALS: BP 153/67
[2021-12-27 08:31] VITALS: BP 153/67
--- NOTE | 2021-12-27 10:21 | NUR ---
SPOKE WITH DR. BUSTOS. PT WILL HAVE A HOSPITAL FOLLOW-UP APPOINTMENT WITH DR. BUSTOS ON January AT 0820. PT WILL HAVE A CHEST X-RAY AND OFFICE VISIT.
--- NOTE | 2021-12-27 11:58 | NUR ---
CHART REVIEWED AND DISCUSSED WITH CARE TEAM. CM MET WITH PT THIS DAY HOWEVER PT WAS ASLEEP AND I DID NOT AROUSE. CM SPOKE TO PTS NURSE ALANIS. INFORMED PT WILL DC THIS DAY TO [facility] AT 1530 VIA W/C VAN. CM CALLED AND SPOKE TO PTS MUNIRAOA RAUL WOOD WHO IS AWARE. RAUL INFORMED CM LOISNikkie RETRIEVED CLOTHING FOR PT AND BRING TO PT THIS DAY. HOWEVER, SHE HAD APPTS AROUND 11ISH AND SHOULD DELIVER AFTER THAT. PT WAS CONCERNED SHE WOULD HAVE NO CLOTHES TO GO TO FACILITY. PT ALSO CONCERNED ABOUT FUTURE ONCOLOGY APPTS ONCE AT [facility]. RAUL INFORMED CM SHE SPOKE TO DR BUSTOS AND PLANS TO RETURN PT TO SEE DR BUSTOS IN 10-14 DAYS FOLLOWING DISCHARGE. ALL PARTIES AWARE OF PT DC THIS DAY. CM SPOKE TO PT YESTERDAY ABOUT PLAN. CHART COPIES. DC ORDERS AND SUMMARY FAXED TO [facility]. NO FURTHER CM INTERVENTIONS INDICATED AT THIS TIME.
--- NOTE | 2021-12-27 13:44 | NUR ---
ASSUMED PT CARE THIS MORNING. PT A&OX4 BUT FORGETFUL. PT IS ABLE TO APPROPRIATELY COMMUNICATE NEEDS TO STAFF AND EXPRESSED SOME ANXIETY ABOUT TRANSFERRING TO THE FACILITY AND HAVING CLOTHES. STAFF HAD A GOOD CONVERSATION WITH THE PT AND ADDRESSED ALL ANXIOUS THOUGHTS. PT HAD A DECENT APPETITE THIS SHIFT AND CONSUMED ABOUT 50% OF BREAKFAST AND LUNCH. PT AMBULATES WITH STANDBY ASSISTANCE FROM STAFF AND CALLS FOR HELP APPROPRIATELY. PT VOIDED WITHOUT ANY ISSUES AND HAD A BM. [facility] WAS CALLED. NURSE LJ RECEIVED REPORT FROM THIS STAFF MEMBER. PT IV AND TELE MONITORING WILL BE DISCONTINUED BEFORE LEAVING THIS FACILITY. PT WILL BE CLEANED, DRESSED, AND SENT WITH THEIR BELONGINGS TO [facility] WITH A WHEELCHAIR TRANSPORT.
--- NOTE | 2021-12-27 14:55 | NUR ---
CM SPOKE TO PTS DPOA AT THIS TIME VIA PHONE. PTS DPOA RAUL WOOD INSTRUCTED PT MEDICATION IBRANCE IS ON HOLD PER PTS ONCOLOGIST. PT IS TO RESUME IBRANE ONCE SEEN BY ONCOLOGIST. RAUL INDICATED PT WAS TO HAVE A MRI AND PET SCAN PRIOR TO ONCOLOGIST APPT AND UNABLE TO GET THAT DONE RELATED TO BEING HOPITALIZED. PARAS AND RAUL DISCUSSED PLAN OF PT COMPLETING REHAB PRIOR TO APPT TO GAIN STRENTH TO TOLERATE CHEMO, CANCER TREATMENT, AND ONCE MEDICALLY STABLE. PTS DPOA INFORMED CM SHE WOULD ENSURE PT HAD THESE FOLLOWUP TEST COMPLETED FOLLOWING REHAB AND RESCHEDULE ONCOLOGIST APPT. NO FURTHER CM INTERVENTIONS AT THIS TIME.
[2021-12-27 15:35] VITALS: BP 132/78
== END 2021-12-27 17:38 | DRG 388 ==
LOC: ER 09:42 → EROBS 12:27 → 2N 12:27
PROVIDERS: Emergency Medicine; Internal Medicine; Internal Medicine Pulmonary Disease; Surgery; ADMIT Hospitalist; ATTEND Hospitalist
PROC: 0D9670Z Drainage of Stomach with Drainage Device, Via Natural or Artificial Opening (ICD-10-PCS; principal; 2021-12-19)
PROC: 0W993ZZ Drainage of Right Pleural Cavity, Percutaneous Approach (ICD-10-PCS; 2021-12-22)
PROC: 0W9B3ZZ Drainage of Left Pleural Cavity, Percutaneous Approach (ICD-10-PCS; 2021-12-25)
DX: K56.600 Partial intestinal obstruction, unspecified as to cause (principal); J96.01 Acute respiratory failure with hypoxia; R65.11 Systemic inflammatory response syndrome (SIRS) of non-infectious origin with acute organ dysfunction; E87.1 Hypo-osmolality and hyponatremia; J91.8 Pleural effusion in other conditions classified elsewhere; C50.919 Malignant neoplasm of unspecified site of unspecified female breast; E03.9 Hypothyroidism, unspecified; E78.5 Hyperlipidemia, unspecified; Z60.2 Problems related to living alone; R53.81 Other malaise; M17.11 Unilateral primary osteoarthritis, right knee; K59.00 Constipation, unspecified; M81.0 Age-related osteoporosis without current pathological fracture; D72.819 Decreased white blood cell count, unspecified; D64.9 Anemia, unspecified; E83.39 Other disorders of phosphorus metabolism; Z20.822 Contact with and (suspected) exposure to COVID-19; Z90.49 Acquired absence of other specified parts of digestive tract; Z90.710 Acquired absence of both cervix and uterus; Z90.11 Acquired absence of right breast and nipple; Z88.0 Allergy status to penicillin
CPT/HCPCS: 10081